=== PATIENT | male | born 1955 | race Caucasian/White ===

== ENCOUNTER 2024-04-01 13:58 | Outpatient (REF) | payer OTHER, SELFPAY ==
[2024-04-01 14:16] LABS: MANUAL DIFF FLAG NO
[2024-04-01 14:45] LABS: Basophils Absolute Auto 0.1 X10*3/uL (0.0-0.2); Basophils Percent Auto 0.9 % (0-2); Eosinophils Absolute Auto 0.7 X10*3/uL (0.0-0.4); Eosinophils Percent Auto 6.6 % (0-4); Hematocrit 43.9 % (42.0-52.0); Hemoglobin 14.3 g/dl (14.0-18.0); Imm Gran Abs Auto 0.04 X10*3/uL (0.00-0.03); Imm Gran Pct Auto 0.4 % (0.0-0.4); Lymphocytes Absolute Auto 1.9 X10*3/uL (1.2-4.9); Lymphocytes Percent Auto 18.8 % (20-40); Mean Corpuscular HGB Conc 32.6 g/dl (31.0-36.0); Mean Corpuscular Hemoglobin 28.9 pg (27.0-33.0); Mean Corpuscular Volume 88.7 fL (80.0-98.0); Mean Platelet Volume 9.2 fL (9.4-12.4); Monocytes Absolute Auto 1.1 X10*3/uL (0.1-1.2); Monocytes Percent Auto 11.4 % (2-11); Neutrophils Absolute Auto 6.1 x10*3/uL (2.0-8.3); Neutrophils Percent Auto 61.9 % (45-73); Platelet Count 337 X10*3/uL (160-400); Red Blood Count 4.95 X10*6/uL (4.60-5.80); Red Cell Distribution Width 13.8 % (11.0-16.0); White Blood Count 9.9 X10*3/uL (4.8-10.8)
[2024-04-01 15:34] LABS: Anion Gap 13 (12-20); Blood Urea Nitrogen 28 mg/dL (9-16); Calcium 9.9 mg/dL (8.4-10.2); Carbon Dioxide 27 mmol/L (22-29); Chloride 106 mmol/L (96-108); Estimated Glomerular Filt Rate 57; Potassium 5.5 mmol/L (3.3-5.1); Sodium 140 mmol/L (135-145)
== END 2024-04-01 13:59 | disposition home or self-care (01) ==
LOC: HO.LAB 13:58
PROVIDERS: PCP Internal Medicine; Visit Provider Internal Medicine Nephrology
DX: E87.5 Hyperkalemia (principal); I10 Essential (primary) hypertension
CPT/HCPCS: 36415; 80051; 82310; 82565; 84520; 85025

== ENCOUNTER 2024-04-04 13:20 | Outpatient (REF) | payer OTHER, SELFPAY ==
[2024-04-04 15:37] LABS: Anion Gap 15 (12-20); Blood Urea Nitrogen 28 mg/dL (9-16); Calcium 9.9 mg/dL (8.4-10.2); Carbon Dioxide 23 mmol/L (22-29); Chloride 105 mmol/L (96-108); Estimated Glomerular Filt Rate > 60; Potassium 4.7 mmol/L (3.3-5.1); Sodium 138 mmol/L (135-145)
[2024-04-04 15:54] LABS: Creatinine Urine 26.99 mg/dL; Potassium Urine Random 20.2 mmol/L
[2024-04-04 16:00] LABS: Cortisol Random 5.5 ug/dL
[2024-04-04 16:10] LABS: Osmolality Urine 278 mosm/kg (373-1093)
== END 2024-04-04 13:21 | disposition home or self-care (01) ==
LOC: HO.LAB 13:20
PROVIDERS: PCP Internal Medicine; Visit Provider Internal Medicine Nephrology
DX: E87.5 Hyperkalemia (principal)
CPT/HCPCS: 36415; 80051; 82088; 82310; 82533; 82565; 82570; 83935; 84133; 84520

== ENCOUNTER 2024-05-16 11:00 | Outpatient (RCR) | payer OTHER, SELFPAY ==
[2024-03-14 09:51] VITALS: BP 129/65; O2SAT 93
== END 2024-05-16 15:24 | disposition home or self-care (01) ==
LOC: HO.PT 11:00
PROVIDERS: PCP Internal Medicine; Visit Provider Nurse Practitioner Adult Health
DX: Z98.890 Other specified postprocedural states (principal)
CPT/HCPCS: 97110; 97140; 97162

== ENCOUNTER 2025-03-28 13:18 | Outpatient (REF) | payer MEDICARE, SELFPAY ==
--- OUTSIDE RECORDS SUMMARY | 2025-03-28 13:21 | XMS_ITS | Encounter Summary ---
Author Organization [facility] Address [address] [facility] [address] [place] [address] Phone Care Team Providers Care Laborer Driver Name Role Phone Unavailable Primary Care Provider Unavailabl e Encounter Details Date Type Department Care Team (Latest Contact Info) Description 04/02/2024 Office Communication [facility] [address] [facility] [address] [place] [phone] Milton Mason MD [address] [facility] [address] [place] [phone] Hyperkalemia (Primary Dx) Social History Tobacco Use Types Packs/Day Years Used Date Smoking Tobacco: Never Assessed Sex and Gender Information Value Date Recorded Sex Assigned at Not on file Legal Sex Male 8:29 AM EDT Gender Identity Not on file Sexual Orientation Not on file documented as of this encounter Miscellaneous Notes * Telephone Encounter - Lachelle Almanza - 04/03/2024 8:29 AM EDT Spoke with the patient. He will have labs drawn (tomorrow). I have left samples at the [facility] director. He will need to be instructed on how to take Lokelma if needed. * Telephone Encounter - Milton Mason MD - 04/02/2024 7:31 PM EDT Please call PT and tell him he needs to get repeat labs th or Monday and chart picker some samples oflokelma documented in this encounter Plan of Treatment Upcoming Encounters Date Type Department Care Team (Late st Contact Info) Description 04/14/2025 2:00 PM EDT Office Visit [facility] [address] [place] [address] [place] [phone] Milton Mason MD [address] [facility] [address] [place] [phone] Scheduled Orders Name Type Priority Associated Diagnoses Orde r Schedule Renal function panel Lab Routine Hyperkalemia Expected: 04/04/2024, Expires: 05/03/2025 Cortisol Lab Routine Hyperkalemia Expected: 04/04/2024, Expires: 05/03/2025 Miscellaneous Lab Test Lab Routine Hyperkalemia Expected: 04/04/2024, Expires: 05/03/2025 documented as of this encounter Procedures Procedure Name Priority Date/Time Associated Diagnosis Comments POTASSIUM, URINE, RANDOM Routine 04/04/2024 2:29 PM EDT Hyperkalemia OSMOLALITY, URINE Routine 04/04/2024 2:2 9 PM EDT Hyperkalemia CREATININE, URINE, RANDOM Routine 04/04/2024 2:29 PM EDT Hyperkalemia ALDOSTERONE Routine 04/04/2024 1:43 PM EDT Hyperkalemia documented in this encounter Results * (ABNORMAL) Urine Osmolality (04/04/2024 2:29 PM EDT) Osmolality, Ur 278(L) 373 - 1,093 mosm/kg See order comments Urine specimen (specimen) Urine specimen obtained by clean catch procedure / Unknown 04/04/2024 2:29 PM EDT 04/04/2024 2:29 PM EDT us Milton Mason MD LAB URINE ORDERABLES Final Re sult Performing Organization Address [facility] de Phone Number [place] See order comments [place] [address] * Urine Creatinine, random (04/04/2024 2:29 PM EDT) Creatinine, Urine 26.99 mg/dL See order comments Urine specimen (specimen) Urine specimen obtained by clean catch procedure / Unknown 04/04/2024 2:29 PM EDT 04/04/2024 2:29 PM EDT us Milton Mason MD LAB URINE ORDERABLES Final Re sult Performing Organization Address [facility] de [facility] See order comments [place] [address] * Potassium, urine, random (04/04/2024 2:29 PM EDT) Potassium Urine, Random 20.2 mmol/L See order comments Urine specimen (specimen) Urine specimen obtained by clean catch procedure / Unknown 04/04/2024 2:29 PM EDT 04/04/2024 2:29 PM EDT us Milton Mason MD LAB URINE ORDERABLES Final Re sult Performing Organization Address [facility] de Phone Number [facility] See order comments [place] [address] * Aldosterone (04/04/2024 1:43 PM EDT) Aldosterone 7 see note ng/dL See order comments Comment: Unable to flag abnormal result(s), please refer to reference range(s) below: Adult Reference Ranges for Aldosterone, LC/MS/MS: Upright 8:00 - 10:00 am < or = 28 ng/dL Upright 4:00 - 6:00 pm < or = 21 ng/dL Supine 8:00 - 10:00 am 3 - 16 ng/dL This test was developed and its analytical performance characteristics have been determined by [facility] [place], [place]. It has not been cleared or approved by the U.S. Food and Drug Administration. This assay has been validated pursuant to the CLIA regulations and is used for clinical purposes. THIS TEST WAS PERFORMED AT: [facility]/[address] [id number] STELLA RODRIGUEZ MD,PHD Blood specimen (specimen) Venous blood / Unknown 04/04/2024 1:43 PM EDT 04/04/2024 1:43 PM EDT us Milton Mason MD LAB BLOOD ORDERABLES Final Re sult [place] See order comments [place] [address] documented in this encounter Visit Diagnoses Diagnosis Hyperkalemia- Primary documented in this encounter
[2025-03-28 14:26] LABS: Anion Gap 10 (12-20); Blood Urea Nitrogen 18 mg/dL (9-16); Calcium 9.4 mg/dL (8.4-10.2); Carbon Dioxide 25 mmol/L (22-29); Chloride 107 mmol/L (96-108); Estimated Glomerular Filt Rate > 60; Potassium 4.3 mmol/L (3.3-5.1); Sodium 138 mmol/L (135-145)
[2025-03-28 17:53] LABS: Microalbum/Creatinine Ratio Ur 21.0 ug/mg cr (<30)
== END 2025-03-28 13:19 | disposition home or self-care (01) ==
LOC: HO.LAB 13:18
PROVIDERS: Visit Provider Internal Medicine Nephrology
DX: E87.5 Hyperkalemia (principal)
CPT/HCPCS: 36415; 80051; 82043; 82088; 82310; 82533; 82565; 82570; 83935; 84133; 84520